=== PATIENT | female | born 1965 | race Caucasian/White ===

== ENCOUNTER 2017-01-28 07:42 | Day surgery (SDC) | payer OTHER ==
[~2017-01-28] VITALS: Ht 162.6 cm; Wt 78.0 kg
[2017-01-28] VITALS (14 sets, daily range): BP systolic 123–182; BP diastolic 56–85; PULSE 60–75; RESP 14–20; Ht 162.6 cm; Wt 78.0 kg
[~2017-01-28 07:42] MED LIST: SOD CHLORIDE 0.9% 1,000 ML IV SCH
[2017-01-28] MEDS ORDERED: RANI150T5 PO (08:54)
[2017-01-28] MEDS ORDERED: PROP20TA4 PO (08:54)
[2017-01-28 09:13] LABS: ADD SCAN DIFF NO
[2017-01-28 09:15] LABS: BASOPHILS % 0.2 % (0.0-2.0); EOSINOPHILS # 0.2 10^3/ul (0.0-0.5); HEMATOCRIT 34.7 % (37.0-47.0); HEMOGLOBIN 11.2 g/dl (12.0-16.0); LYMPHOCYTES # 1.6 10^3/ul (0.8-2.9); LYMPHOCYTES % 25.8 % (15.0-51.0); MEAN CORPUSCULAR HEMOGLOBIN 26.4 pg (29.0-33.0); MEAN CORPUSCULAR HGB CONC 32.3 g/dl (32.0-37.0); MEAN CORPUSCULAR VOLUME 81.6 fl (82.0-101.0); MEAN PLATELET VOLUME 11.2 fl (7.4-10.4); MONOCYTE # 0.4 10^3/ul (0.3-0.9); NEUTROPHIL # 3.9 10^3/ul (1.6-7.5); NEUTROPHILS % 63.7 % (39.0-77.0); PLATELET COUNT 234 10^3/UL (140-415); RED BLOOD COUNT 4.25 10^6/ul (4.20-5.40)
[2017-01-28] MEDS ORDERED: LIDOCAINE 1% (MDV) 20 ML INJ ONE (09:30)
[2017-01-28] MEDS ORDERED: FENTAnyl 50 MCG/ML VIAL ONE (09:31)
[2017-01-28] MEDS ORDERED: MIDAZOLAM 1 MG/ML 2 ML INJ ONE (09:31)
[2017-01-28] MEDS ORDERED: IODIXANOL LOCM 100 ML BTL ONE (09:31)
[2017-01-28 09:34] LABS: INR 0.99; PARTIAL THROMBOPLASTIN TIME 27.8 Sec (25.0-35.0); PROTIME 13.1 Sec (12.2-14.2)
[2017-01-28 09:38] LABS: CREATININE 0.54 mg/dl (0.44-1.00); POTASSIUM 4.3 mmol/L (3.5-5.1)
[2017-01-28] MEDS ORDERED: SOD CHLORIDE 0.9% 1,000 ML IV SCH (10:36)
--- NOTE | 2017-01-28 10:41 | PDOCDIS ---
Discharge Instructions CONDITION Patient Condition: Good HOME CARE INSTRUCTIONS: Diet Instructions: Low Fat /Cholesterol ACTIVITY: Activity Restrictions: Avoid heavy lifting (for 3 days) Do not Drive (for 2 days) Avoid Heavy Housework (for 2 days) FOLLOW UP/APPOINTMENTS Appointments in 2-4 weeks SEDRICK VILLA MD January 28, 2017 10:40
[2017-01-28] MEDS ORDERED: ACETAMINOPHEN 325 MG TAB PO PRN (11:00)
[2017-01-28] MEDS ORDERED: ONDANSETRON 4 MG INJ IV PRN (11:00)
[2017-01-28] MEDS ORDERED: AL HYDROX/MG HYDROX/SIMETH 30 ML CUP PO PRN (11:00)
--- NOTE | 2017-01-28 11:27 | ECORPT ---
DATE OF SERVICE: 01/28/2017 PROCEDURE: 1. Left heart catheterization. 2. Selective left and right coronary angiography. 3. Supervision and interpretation of coronary angiography. 4. Right femoral angiography. SURGEON: Kenney Nettles MD [employer] SUPERVISOR: Dr. Javed Luna PATIENT IDENTIFICATION DATA: The patient is a 51-year-old female pleasant patient with evidence of e xertional chest pain and evidence of ischemia in a stress echocardiogram suggestive of ____ and glob al ischemia, who was electively taken to the cardiac catheterization laboratory for evaluation of __ __ and possible percutaneous coronary intervention. Prior to the procedure I explained to the patie nt the benefits and risks of this procedure which include but are not limited to , ____ , strok e, ____ infection, emergent vascular or bypass surgery, loss of limb, and need for for prolong ed amount of time. She understands and agrees and wishes to proceed. MEDICATIONS USED: 1. Lidocaine 2% ____ . 2. Versed total of 1 mg IV. 3. Fentanyl total of 20 mcg intravenously. PROCEDURE: After the patient was prepped and draped in the usual sterile fashion ____ Xylocaine was infiltrated into the right ____ for local anesthesia. A 6-Tai[place]ese sheath was inserted into the right femoral artery using a modified Seldinger technique. A 6-[place]ese sheath was introduced in the right femoral artery using at first attempt, a 6-[place] JL4 and a 6-[place] JL4 catheter was used and selec tive left coronary angiography respectively. Subsequently, a pigtail catheter was advanced into the left ventricle. The pressure measurements were obtained and no contrast dye was used for ____ ventri culography in order to save contrast dye. Subsequently all catheters were removed and manual pressur e was applied until the very good hemostasis was obtained. There were no complications during the pr ocedure and total amount of contrast used was 30 mL. Total fluoro time was 1.8 minutes. HEMODYNAMICS: 1. Opening aortic pressure was 142/86, a mean pressure of 112. 2. Left ventricular pressure was 161/0 with left ventricular ____ of 50 mm Hg. 3. There was no gradient doing pullback of the pigtail catheter on the left ventricle and ascending aorta. 4. Final aortic pressure 163/74 ____ . DESCRIPTION OF CORONARY ANATOMY: 1. The left main artery has no evidence of significant obstructive disease. 2. The left anterior descending artery revealed a 20% mid stenosis without focal obstructive diseas e requiring interventional technique. There was excellent run-off and AUBREE 3 flow in the entire LAD territory. 3. The circumflex artery has no evidence of significant obstructive disease. 4. The right coronary artery reveals a 2% mid-level stenosis with excellent run-off into the distal part vessel. Subsequently right femoral angiogram, the sheaths ____ was visualized at bifurcation a nd there is no significant stenosis. CONCLUSIONS: This is a 51-year-old female patient with evidence of ischemia on stress echocardiogram who was found to have no significant obstructive disease in her epicardial coronary arteries requir ing interventional techniques. All findings were explained to the patient and the patient's family. Dictated By: KENNEY TORRES/DAR Conf#: [id number] DID#: [id number]
--- NOTE | 2017-01-28 21:30 | RADRPT ---
Vent Rate: 68 bpm RR Interval: 0 msec [place] Interval: 146 msec QRS Duration: 134 msec QT Interval: 428 msec QTC Interval: 455 msec P-R-T [place]: 69 - 0 - 87 degrees Normal sinus rhythm Left bundle branch block Abnormal ECG Electronically Signed By: Wes German [id number]
== END 2017-01-28 17:45 | disposition home or self-care (01) ==
LOC: SDS 07:42
PROVIDERS: ATTEND Internal Medicine Cardiovascular Disease
DX: I25.10 Atherosclerotic heart disease of native coronary artery without angina pectoris (principal)
CPT/HCPCS: 80048; 84703; 85025; 85610; 85730; 93005; 93458; C1769; C1887; J1644; J2250; J3010; Q9967; Z7610